=== PATIENT | female | born 1985 | race Caucasian/White ===

== ENCOUNTER 2017-05-22 22:18 | Emergency (ER) | payer MEDICAID ==
[~2017-05-22] VITALS: Ht 172.7 cm; Wt 68.4 kg
[2017-05-22 22:22] VITALS: BP 108/61
[2017-05-22] MEDS ORDERED: ACETAMINOPHEN 650 MG/20.3 ML UDC PO ONE (23:00)
[2017-05-22] MEDS ORDERED: ACETAMINOPHEN 650 MG/20.3 ML UDC ONE (23:17)
== END 2017-05-22 23:59 | disposition home or self-care (01) ==
LOC: ED 23:45
DX: J02.8 Acute pharyngitis due to other specified organisms (principal); B97.89 Other viral agents as the cause of diseases classified elsewhere; Z88.0 Allergy status to penicillin
CPT/HCPCS: 87081; 87880; 99284

== ENCOUNTER 2018-05-10 15:19 | Emergency (ER) | payer MEDICAID ==
[~2018-05-10] VITALS: Ht 172.7 cm; Wt 65.0 kg
[2018-05-10 15:22] VITALS: BP 121/77
--- NOTE | 2018-05-10 15:30 | NUR ---
NO ANSWER IN WR 1530
--- NOTE | 2018-05-10 16:07 | NUR ---
NA X1 WHEN CALLED FOR ROOM
--- NOTE | 2018-05-10 16:24 | NUR ---
NAX2
--- NOTE | 2018-05-10 16:27 | NUR ---
NAX3
== END 2018-05-10 16:42 | disposition left against medical advice (07) ==
LOC: ED 16:15
DX: R00.2 Palpitations (principal); R07.89 Other chest pain
CPT/HCPCS: 93005; 99283

== ENCOUNTER 2018-10-24 01:30 | Observation (INO) | payer MEDICAID, OTHER ==
[~2018-10-24] VITALS: Ht 172.7 cm; Wt 71.5 kg
[2018-10-24] MEDS ORDERED: HYDROmorphone 1 MG/ML, 1ML VIAL ONE ×3 (02:19→10:03)
[2018-10-24] MEDS ORDERED: ONDANSETRON 2MG/ML, 2ML ONE ×2 (02:20→07:28)
[2018-10-24] MEDS ORDERED: ONDANSETRON 2MG/ML, 2ML IVPush ONE (02:30)
[2018-10-24] MEDS: HYDROmorphone 1 MG/ML, 1ML VIAL IVPush PRN ×2 (02:35→03:11)
[2018-10-24 02:43] LABS: BASOPHILS # (AUTO) 0.04 x10^3/uL (0-0.1); BASOPHILS % (AUTO) 0 % (0-1); EOSINOPHILS # (AUTO) 0.17 x10^3/uL (0-0.4); EOSINOPHILS % (AUTO) 1 % (1-7); LYMPHOCYTES # (AUTO) 2.27 x10^3/uL (1-3.4); LYMPHOCYTES % (AUTO) 18 % (22-44); MD NO; MEAN CORPUSCULAR HEMOGLOBIN 32.1 pg (27.0-34.8); MEAN CORPUSCULAR HGB CONC 33.6 g/dL (32.4-35.8); MEAN CORPUSCULAR VOLUME 95.5 fL (80-100); MEAN PLATELET VOLUME 8.2 fL (7.4-10.4); MONOCYTES # (AUTO) 0.46 x10^3/uL (0.2-0.8); MONOCYTES % (AUTO) 4 % (2-9); NEUTROPHILS % (AUTO) 77 % (42-75); PLATELET COUNT 264 x10^3/uL (130-400); RED BLOOD COUNT 3.85 x10^6/uL (3.82-5.3); RED CELL DISTRIBUTION WIDTH 12.2 % (9.6-15.2)
[2018-10-24 02:54] LABS: ALANINE AMINOTRANSFERASE 14 U/L (12-78); ALBUMIN 3.7 g/dL (3.4-5.0); ANION GAP 9 mmol/L (5-15); CALCIUM 8.1 mg/dL (8.5-10.1); CHLORIDE 101 mmol/L (98-107); CREATININE 0.68 mg/dL (0.55-1.02)
[2018-10-24 02:56] LABS: ALKALINE PHOSPHATASE 32 U/L (45-117); BILIRUBIN,TOTAL 1.5 mg/dL (0.2-1.0); TOTAL PROTEIN 6.8 g/dL (6.4-8.2)
--- NOTE | 2018-10-24 03:08 | NUR ---
PT UNABLE TO COMPLETE CT SCAN D/T PAIN. DISCUSSED W/ ERMD.
--- NOTE | 2018-10-24 03:30 | NUR ---
PT STATES PAIN IS ONLY GETTING WORSE. DISCUSSED W/ MD.
[2018-10-24] MEDS ORDERED: KETAMINE 10 MG/ML, 20ML ONE ×2 (03:42→04:30)
--- NOTE | 2018-10-24 03:50 | NUR ---
PT GIVEN IV DOSE OF KETAMINE FOR PAIN CONTROL PER ERMD ORDER. CLARIFIED DOSAGE AND APPRORPIRATENESS W/ ERMD. PT TOLERATING WELL AT THIS TIME. VSS. CONTINUES TO C/O PAIN. S/O AT BEDSIDE.
[2018-10-24] MEDS ORDERED: KETAMINE 10 MG/ML, 20ML IV ONE ×2 (04:00→05:00)
--- NOTE | 2018-10-24 04:11 | NUR ---
PT CONTINUES TO BE UNABLE TO LIE FLAT D/T PAIN.
--- NOTE | 2018-10-24 04:22 | NUR ---
ERMD TO BEDSIDE FOR RE-ASSESSMENT.
--- NOTE | 2018-10-24 04:44 | NUR ---
PT NOW PALE AND DIAPHORETIC, VSS. S/O AT BEDSIDE. DENIES RELEIF OF PAIN. MD AWARE
--- NOTE | 2018-10-24 04:53 | NUR ---
Patient transferred to trauma bay. Provider to bedside, informed patient of concerns for active bleed. Ultrasound to bedside; patient complaints of pain. Pale diaphoretic. Afebrile, no unusual hypotension. AOx4. Dr. Rinaldi noted that VSS; hr 70 bp 123/75 but pain continues to be uncontrolled. Informing patient of options and concerns.
--- NOTE | 2018-10-24 04:59 | NUR ---
Patient is informed of concerns. Patient declining sedation. Boyfriend to bedside; helped alleviate patients concerns. Accepting of intubation at this time. IV started by wall steamer. Orders for sedation relayed by provider. RT, RN x3 at bedside.
[2018-10-24] MEDS ORDERED: SODIUM CHLORIDE 0.9% 1,000ML IVBOLUS ONE (05:00)
--- NOTE | 2018-10-24 05:01 | NUR ---
REPORT GIVEN TO KANG IVY AT THE BEDSIDE AND TRANSFERED CARE.
--- NOTE | 2018-10-24 05:09 | NUR ---
0510 10 mg of etomidate given in right forearm iv 0510 100 of rocuronium given 0512 patient intubated with a 7.5 et tube breaht sounds positive bilaterally placed 23 cm at the lip positive Co2 on monitor. 0513 patient on transport monitor in addition 0515 patient on ventilator 0515 monitor tech at bedside for confirmation vss 128/78 spo2 100%; etco2 48; on the ventilator rate of 14 breaths/min peep of 5cmH2O and tidal volume of 400mL at 100%fiO2. 0519 Patient placed on transport ventilator and transport monitor. Patient en route to CT
--- NOTE | 2018-10-24 05:36 | NUR ---
[address] 05- to ct completed 529 returned to room and returned to monitor 0535 10mg vsed
--- NOTE | 2018-10-24 05:49 | NUR ---
x2 RN at bedside; patient VSS on monitor Temperature beatty placed per hospital protocol. OG placed, measured from epigastric. Advanced and confirmed by auscultation and with stomach content return. Addendum: 10/24/18 at 0554 by MARCELLUS Patient in process of placing tubes reached for og and pulled on lines. Attempts to calm patient unsuccessful. Placed in x2 point wrist restraints bilaterally.
--- NOTE | 2018-10-24 06:00 | NUR ---
x1 L NS bolus started second hung RT at bedside; sputum sample obtained from inline ET tube suction.
--- NOTE | 2018-10-24 06:06 | NUR ---
DR MORGAN SPEAKING WITH SOLAR PHOTOVOLTAIC CREW LEAD AT THIS TIME, PT REMAINS INTUBATED AND SEDATED AT THIS TIME
[2018-10-24] MEDS ORDERED: OMNIPAQUE 350 MG/ML, 100ML BOTTLE ONE (06:15)
[2018-10-24] MEDS ORDERED: ETOMIDATE 20 MG/10 ML IVPush ONE (06:30)
[2018-10-24] MEDS ORDERED: PROPOFOL 100 ML IV PRN (06:30)
[2018-10-24] MEDS ORDERED: MIDAZOLAM HCL 25 MG in SODIUM CHLORIDE 0.9% 245 ML IV PRN (06:30)
[2018-10-24] MEDS ORDERED: ROCURONIUM 10 MG/ML,10ML IVPush ONE (06:30)
--- NOTE | 2018-10-24 06:32 | NUR ---
HAVE BEEN TITRATING MEDICATIONS FOR EFFECT, PROPOFOL INCREASING TITRATION FOR EFFECT, ADDED VERSEX GTT FOR PT COMFORT, REPORT AWARE THAT PT IS TO GO TO OR AND BRIEF REPORT GIVEN. DR CHAMORRO HAS REQUESTED CONSCENT TO EXPLORATORY LAP AND PT SIGNIFICANT OTHER AWARE.
[2018-10-24 06:33] LABS: MICROSCOPIC INDICATED
--- NOTE | 2018-10-24 06:38 | NUR ---
Patients significant other brought back to bedside, informed of results by provider and informed of medical opinion for need for surgery. Significant other states he agreeable. Reports patient has informed him that she does not want her mother or father involved in her medical care. Procedure has been deemed emergent. Significant other has signed informed consent and has been placed on the chart.
[2018-10-24 06:41] LABS: CULTURE INDICATED? NO
[2018-10-24 06:42] LABS: AMPHETAMINE SCREEN, URINE Negative (Negative); BARBITURATE SCREEN, URINE Negative (Negative); BENZODIAZEPINE SCREEN, URINE Positive (Negative); CANNABINOID SCREEN, URINE Negative (Negative); COCAINE SCREEN, URINE Negative (Negative); METHADONE SCREEN, URINE Negative (Negative); OPIATE SCREEN, URINE Positive (Negative)
--- NOTE | 2018-10-24 06:46 | NUR ---
LAB REPORTS HGB 8.7 HCT 26, MD AWARE, BLOOD BANK NOTES 15 MINUTES FOR TYPE AND SCREEN ADN START 1ST UNIT
[2018-10-24 06:47] LABS: MEAN CORPUSCULAR HEMOGLOBIN 31.5 pg (27.0-34.8); MEAN CORPUSCULAR HGB CONC 33.6 g/dL (32.4-35.8); MEAN CORPUSCULAR VOLUME 93.8 fL (80-100); MEAN PLATELET VOLUME 7.8 fL (7.4-10.4); PLATELET COUNT 190 x10^3/uL (130-400); RED BLOOD COUNT 2.77 x10^6/uL (3.82-5.3); RED CELL DISTRIBUTION WIDTH 11.8 % (9.6-15.2)
[2018-10-24 07:06] LABS: BASOPHILS # (AUTO) 0.02 x10^3/uL (0-0.1); BASOPHILS % (AUTO) 0 % (0-1); EOSINOPHILS % (AUTO) 0 % (1-7); LYMPHOCYTES # (AUTO) 0.75 x10^3/uL (1-3.4); LYMPHOCYTES % (AUTO) 7 % (22-44); MD SCAN; MONOCYTES # (AUTO) 0.33 x10^3/uL (0.2-0.8); MONOCYTES % (AUTO) 3 % (2-9); NEUTROPHILS # (AUTO) 9.23 x10^3/uL (1.8-6.8); NEUTROPHILS % (AUTO) 89 % (42-75)
--- NOTE | 2018-10-24 07:11 | NUR ---
assumed care pt sedated and intubated on resp w prop and versed at the bs pt fully monitored
[2018-10-24] MEDS ORDERED: EPINEPHRINE 1 MG/ML, 1ML ONE (07:13)
[2018-10-24] MEDS ORDERED: BUPIVACAINE/PF 0.25% ONE (07:13)
[2018-10-24] MEDS ORDERED: MIDAZOLAM 1 MG/ML, 2ML ONE (07:18)
[2018-10-24] MEDS ORDERED: FENTANYL PF 250 MCG/5ML ONE (07:19)
[2018-10-24 07:25] VITALS: BP 107/70
[2018-10-24] MEDS ORDERED: DEXAMETHASONE 4 MG/ML, 1ML ONE ×2 (07:28→07:55)
[2018-10-24] MEDS ORDERED: SUGAMMADEX 200 MG/2 ML IVPush ONE (07:28)
--- NOTE | 2018-10-24 07:30 | NUR ---
at 0725 surg to the bs to transport pt to surg 1 st unit blood transfussion started at 0725 vital remaining stable at that time hr 60 bp 111/76 100% sat
[2018-10-24] MEDS ORDERED: ROCURONIUM 10MG/ML,5ML ONE (07:57)
[2018-10-24] MEDS ORDERED: ROCURONIUM 10 MG/ML,10ML ONE (08:00)
[2018-10-24] MEDS ORDERED: PROPOFOL 100 ML IV ONE (08:00)
[2018-10-24] MEDS ORDERED: SUCCINYLCHOLINE 20 MG/ML, 10ML ONE (08:00)
[2018-10-24] MEDS ORDERED: MIDAZOLAM 1 MG/ML, 5ML ONE (08:00)
[2018-10-24] MEDS ORDERED: ETOMIDATE 20 MG/10 ML ONE (08:00)
[2018-10-24] MEDS ORDERED: BUPIVACAINE/PF 0.25% INFIL ONE (08:06)
[2018-10-24] MEDS ORDERED: FENTANYL PF 100 MCG/2ML ONE ×3 (08:30→10:02)
[2018-10-24] MEDS ORDERED: MEPERIDINE/PF 25MG/ML,1ML IVPush PRN (09:00)
[2018-10-24] MEDS ORDERED: PROMETHAZINE 25 MG/ML, 1ML IV PRN (09:00)
[2018-10-24] MEDS ORDERED: ONDANSETRON 2MG/ML, 2ML IV PRN ×2 (09:00→12:30)
[2018-10-24] MEDS ORDERED: EPHEDRINE 50 MG/ML, 1ML IVPush PRN (09:00)
[2018-10-24] MEDS ORDERED: MORPHINE SULFATE 4 MG/ML, 1ML IVPush PRN (09:00)
[2018-10-24] MEDS ORDERED: ALBUTEROL SULFATE 2.5 MG/3 ML NPPB PRN (09:00)
[2018-10-24] MEDS ORDERED: ONDANSETRON ODT 8 MG PO PRN (09:00)
[2018-10-24] MEDS ORDERED: hydrALAzine 20 MG/ML, 1ML IV PRN (09:00)
[2018-10-24] MEDS ORDERED: HALOPERIDOL 5 MG/ML IV PRN (09:00)
[2018-10-24] MEDS ORDERED: PROMETHAZINE 12.5 MG SUPP PR PRN (09:00)
[2018-10-24] MEDS ORDERED: LABETALOL 5MG/ML, 20ML IV PRN (09:00)
[2018-10-24] MEDS ORDERED: HYDROmorphone 2 MG/ML, 1ML IVPush PRN (09:00)
[2018-10-24] MEDS ORDERED: OXYcodone 5 MG/5 ML ORAL.SOL UDC PO PRN (09:00)
[2018-10-24] MEDS ORDERED: MIDAZOLAM 1 MG/ML, 2ML IV PRN (09:00)
[2018-10-24] MEDS ORDERED: DIAZEPAM 5 MG/ML, 2ML IVPush PRN (09:00)
[2018-10-24] MEDS ORDERED: MEPERIDINE/PF 25MG/ML,1ML ONE (09:09)
[2018-10-24] MEDS ORDERED: OXYcodone 5 MG/5 ML ORAL.SOL UDC ONE (09:27)
[2018-10-24] MEDS: FENTANYL PF 100 MCG/2ML IV PRN ×3 (09:31→10:05)
[2018-10-24] MEDS: OXYcodone/APAP 5/325MG TABLET PO PRN ×3 (12:47→21:27)
[2018-10-24] MEDS: morphine SULFATE 10 MG/ML, 1ML IV PRN ×5 (14:23→22:40)
[2018-10-24 15:39] VITALS: BP 96/60
[2018-10-24 18:36] VITALS: BP_SYST 113; BP_SYST 96; BP_DIAS 52; BP_DIAS 72
[2018-10-24 22:37] VITALS: BP 105/68
[2018-10-25 00:04] VITALS: BP 95/53
[2018-10-25] MEDS: OXYcodone/APAP 5/325MG TABLET PO PRN ×3 (01:32→10:35)
[2018-10-25 04:05] VITALS: BP 95/56
[2018-10-25] MEDS: IBUPROFEN 600 MG TABLET PO PRN ×2 (04:13→13:49)
[2018-10-25] MEDS: morphine SULFATE 10 MG/ML, 1ML IV PRN ×3 (04:42→10:10)
[2018-10-25 06:37] VITALS: BP 94/55
[2018-10-25 07:31] VITALS: BP 95/58
[2018-10-25] MEDS ORDERED: OXYC-302 PO (13:13)
[2018-10-25 13:30] VITALS: BP 96/58
== END 2018-10-25 14:04 | disposition home or self-care (01) ==
LOC: ED 02:42 → EDIP 06:39 → INTOOBSV 06:39 → 4NE 10:59 → DCLOUNGE 10-25 14:04
PROVIDERS: ADMIT Hospitalist; ATTEND Hospitalist
DX: K66.1 Hemoperitoneum (principal); N83.202 Unspecified ovarian cyst, left side; D64.9 Anemia, unspecified; R10.84 Generalized abdominal pain
CPT/HCPCS: 36415; 36600; 49406; 58662; 71275; 74177; 80053; 80307; 81001; 82803; 83690; 84703; 85014; 85018; 85025; 86850; 86900; 86923; 87070; 87205; 94002; G0378; J0171; J0330; J1100; J1170; J2175; J2250; J2270; J2405; J2704; J3010; J3490; J7030; J7050; P9016; Q9967; 96374; 96375; 96376

== ENCOUNTER 2019-01-24 15:48 | Emergency (ER) | payer MEDICAID ==
[~2019-01-24] VITALS: Ht 172.7 cm; Wt 69.6 kg
[~2019-01-24 15:48] MED LIST: OXYC-302 PO
[2019-01-24 15:50] VITALS: BP 136/67
--- NOTE | 2019-01-24 16:38 | NUR ---
PT RETURNED FROM XRAY.
== END 2019-01-24 17:21 | disposition home or self-care (01) ==
LOC: ED 17:15
DX: J06.9 Acute upper respiratory infection, unspecified (principal); Z88.0 Allergy status to penicillin
CPT/HCPCS: 71046; 99283

== ENCOUNTER 2020-07-26 21:43 | Outpatient (CLI) | payer MEDICAID ==
[~2020-07-26] VITALS: Ht 172.7 cm; Wt 93.0 kg
[~2020-07-26 21:43] MED LIST changes: -OXYC-302 PO; +OXYC1TAB14 PO
[2020-07-26 22:23] VITALS: BP 121/79
== END 2020-07-26 23:46 | disposition home or self-care (01) ==
LOC: LDOP 21:43
PROVIDERS: ATTEND Obstetrics & Gynecology
DX: O62.9 Abnormality of forces of labor, unspecified (principal); O26.893 Other specified pregnancy related conditions, third trimester; Z3A.35 35 weeks gestation of pregnancy
CPT/HCPCS: 59025

== ENCOUNTER 2020-08-17 04:53 | Inpatient (IN) | payer MEDICAID ==
[~2020-08-17] VITALS: Ht 172.7 cm; Wt 90.9 kg
[2020-08-17] MEDS: D5%-LACTATED RINGERS 1,000 ML IV SCH ×3 (05:00→21:00)
[2020-08-17] MEDS ORDERED: OXYTOCIN 30U/ 0.9% NaCL 500ML 500 ML IV PRN (05:00)
[2020-08-17] MEDS ORDERED: OXYTOCIN 30U/ 0.9% NaCL 500ML 500 ML IV ONE (05:00)
[2020-08-17] MEDS ORDERED: TERBUTALINE 1 MG/ML, 1ML IVPush PRN (05:00)
[2020-08-17] MEDS ORDERED: MISOPROSTOL 25 MCG TABLET VG PRN (05:00)
[2020-08-17] MEDS ORDERED: TERBUTALINE 1 MG/ML, 1ML SQ PRN (05:00)
[2020-08-17] MEDS ORDERED: FENTANYL PF 100 MCG/2ML IVPush PRN (05:00)
[2020-08-17] MEDS ORDERED: FENTANYL PF 100 MCG/2ML IV PRN (05:00)
[2020-08-17] MEDS ORDERED: CALCIUM CARBONATE 500 MG TAB.CHEW PO PRN (05:00)
[2020-08-17] MEDS ORDERED: ONDANSETRON 2MG/ML, 2ML IVPush PRN (05:00)
[2020-08-17 05:30] VITALS: BP 110/80
[2020-08-17 05:30] LABS: BASOPHILS % (AUTO) 1 % (0-1); EOSINOPHILS % (AUTO) 1 % (1-7); LYMPHOCYTES % (AUTO) 32 % (22-44); MEAN CORPUSCULAR HEMOGLOBIN 25.9 pg (27.0-34.8); MEAN CORPUSCULAR HGB CONC 32.8 g/dL (32.4-35.8); MEAN PLATELET VOLUME 8.1 fL (7.4-10.4); MONOCYTES % (AUTO) 6 % (2-9); NEUTROPHILS % (AUTO) 61 % (42-75); PLATELET COUNT 319 x10^3/uL (130-400); RED BLOOD COUNT 4.56 x10^6/uL (3.82-5.3); RED CELL DISTRIBUTION WIDTH 15.1 % (9.6-15.2)
[2020-08-17] MEDS: CLINDAMYCIN PMX 900MG/50ML 50 ML IVPB SCH ×3 (07:20→21:00)
[2020-08-17] MEDS ORDERED: LACTATED RINGERS 1,000 ML IVBOLUS PRN (09:00)
[2020-08-17] MEDS ORDERED: NALOXONE 0.4 MG/ML, 1ML IVPush PRN (09:00)
[2020-08-17] MEDS ORDERED: FENTANYL/BUPIV./NS/PF 250 ML EPIDCONT SCH (09:00)
[2020-08-17] MEDS: LACTATED RINGERS 1,000 ML IV SCH ×5 (09:00→21:00)
[2020-08-17] MEDS ORDERED: EPHEDRINE 50 MG/ML, 1ML IVPush PRN (09:00)
[2020-08-17] MEDS ORDERED: BUPIVACAINE 0.25% ONE ×2 (11:50→14:41)
[2020-08-17] MEDS ORDERED: MISOPROSTOL 200 MCG TABLET ONE (15:59)
[2020-08-17] MEDS ORDERED: HYDROcodone/APAP 5/325 TABLET PO PRN (17:00)
[2020-08-17] MEDS: OXYTOCIN 30U/ 0.9% NaCL 500ML 500 ML IV SCH (17:00)
[2020-08-17] MEDS ORDERED: SIMETHICONE 80 MG CHEW TAB PO PRN (17:00)
[2020-08-17] MEDS ORDERED: MISOPROSTOL 200 MCG TABLET PR PRN (17:00)
[2020-08-17] MEDS ORDERED: HYDROcodone/APAP 10/325 MG TABLET ONE (17:47)
[2020-08-17] MEDS: IBUPROFEN 800 MG TABLET PO PRN (17:49)
[2020-08-17] MEDS: HYDROcodone/APAP 5/325 TABLET PO PRN ×2 (17:53→22:07)
[2020-08-17 18:20] VITALS: BP 103/63
[2020-08-17 20:00] VITALS: BP 112/71
[2020-08-17] MEDS: DOCUSATE 100 MG CAPSULE PO PRN (22:06)
[2020-08-17 23:43] LABS: BASOPHILS % (AUTO) 1 % (0-1); EOSINOPHILS % (AUTO) 1 % (1-7); LYMPHOCYTES % (AUTO) 20 % (22-44); MEAN CORPUSCULAR HEMOGLOBIN 26.1 pg (27.0-34.8); MEAN CORPUSCULAR HGB CONC 32.8 g/dL (32.4-35.8); MEAN PLATELET VOLUME 8.2 fL (7.4-10.4); MONOCYTES % (AUTO) 7 % (2-9); NEUTROPHILS % (AUTO) 71 % (42-75); PLATELET COUNT 257 x10^3/uL (130-400); RED BLOOD COUNT 3.99 x10^6/uL (3.82-5.3); RED CELL DISTRIBUTION WIDTH 15.1 % (9.6-15.2)
[2020-08-18] MEDS: IBUPROFEN 800 MG TABLET PO PRN (00:08)
[2020-08-18 00:10] VITALS: BP 106/67
[2020-08-18] MEDS: LACTATED RINGERS 1,000 ML IV SCH ×4 (01:00→13:00)
[2020-08-18] MEDS: HYDROcodone/APAP 5/325 TABLET PO PRN ×2 (02:53→07:19)
[2020-08-18] MEDS: OXYTOCIN 30U/ 0.9% NaCL 500ML 500 ML IV SCH ×2 (03:00→13:00)
[2020-08-18 04:00] VITALS: BP 110/65
[2020-08-18] MEDS: D5%-LACTATED RINGERS 1,000 ML IV SCH ×2 (05:00→13:00)
[2020-08-18] MEDS: CLINDAMYCIN PMX 900MG/50ML 50 ML IVPB SCH ×2 (05:00→13:00)
[2020-08-18] MEDS: DOCUSATE 100 MG CAPSULE PO PRN (07:20)
[2020-08-18] MEDS ORDERED: IBUPROFEN 600 MG TABLET ONE (07:22)
[2020-08-18] MEDS ORDERED: IBUPROFEN 600 MG TABLET PO PRN (07:30)
[2020-08-18 08:00] VITALS: BP 106/51
[2020-08-18] MEDS ORDERED: PRENATAL VIT/IRON/FA 1 EACH TABLET PO SCH (09:00)
[2020-08-18 12:10] VITALS: BP 108/78
[2020-08-18] MEDS ORDERED: ACETAMINOPHEN 325 MG TABLET ONE (12:28)
[2020-08-18] MEDS ORDERED: ACETAMINOPHEN 325 MG TABLET PO PRN (13:00)
[2020-08-18 16:50] VITALS: BP 129/77
== END 2020-08-18 17:49 | disposition home or self-care (01) | DRG 807 ==
LOC: LDIP 04:53 → 2NW 18:10
PROVIDERS: ADMIT Obstetrics & Gynecology; ATTEND Obstetrics & Gynecology
PROC: 10907ZC Drainage of Amniotic Fluid, Therapeutic from Products of Conception, Via Natural or Artificial Opening (ICD-10-PCS; principal; 2020-08-17)
PROC: 10E0XZZ Delivery of Products of Conception, External Approach (ICD-10-PCS; 2020-08-17)
PROC: 10H07YZ Insertion of Other Device into Products of Conception, Via Natural or Artificial Opening (ICD-10-PCS; 2020-08-17)
PROC: 3E033VJ Introduction of Other Hormone into Peripheral Vein, Percutaneous Approach (ICD-10-PCS; 2020-08-17)
PROC: 3E0R3BZ Introduction of Anesthetic Agent into Spinal Canal, Percutaneous Approach (ICD-10-PCS; 2020-08-17)
PROC: 00HU33Z Insertion of Infusion Device into Spinal Canal, Percutaneous Approach (ICD-10-PCS; 2020-08-17)
DX: O76 Abnormality in fetal heart rate and rhythm complicating labor and delivery (principal); Z37.0 Single live birth; Z20.822 Contact with and (suspected) exposure to COVID-19; Z3A.39 39 weeks gestation of pregnancy
CPT/HCPCS: 36415; 85025; 86592; 86850; 86900; 87635; G0378; J2590; J7120